=== PATIENT | male | born 1970 | race Hispanic/Latino ===

== ENCOUNTER 2019-03-17 07:07 | Emergency (ER) | payer SELFPAY ==
[2019-03-17 07:16] VITALS: BP 137/92; PULSE 73; RESP 15; TEMP 36.6; O2SAT 96
--- NOTE | 2019-03-17 07:27 | ED_ITS ---
HPI - Abdominal Pain General Chief Complaint: Abdominal Pain Stated Complaint: abdominal pain Time Seen by Provider: 03/17/19 07:27 Source: patient and family Mode of arrival: Family Vehicle Limitations: language barrier History of Present Illness HPI narrative: This is a 48-year-old male who comes in with complaint of right lower quadrant pain that's about 5:30 this morning. Patient states he has had this pain occasionally in the past but mildly but is significantly worse today. He took 2 Aleve this morning which did improve the pain somewhat. States pain sort of started the right lower quadrant but he does have some discomfort in the right flank as well. He has not had any fevers. He has had some nausea and he has vomited at least once today. He has not had any changes to bowel movements. He has not any issues with urination, no hematuria dysuria frequency. He does not have any testicular pain. Patient denies any other past medical issues. He states he has had a surgery on his gallbladder and he thinks he may have had his appendix removed but he is not sure. He does have a scar in the right lower quadrant. Patient denies any allergies to medications. Related Data Previous Rx's Medication Instructions Recorded hydrocodone-acetaminophen [[place]] 1 tab PO Q4HP PRN #7 tab 08/14/16 hydrocodone-acetaminophen [[place]] 1 tab PO Q4-6H PRN #10 tab 03/17/19 tamsulosin [Flomax] 0.4 mg PO DAILY #7 cap 03/17/19 Allergies Allergy/AdvReac Type Severity Reaction Status Date / Time No Known Allergies Allergy Uncoded 06/24/17 12:44 Review of Systems Review of Systems ROS Unobtainable: All systems reviewed & are unremarkable except as noted in HPI and below Patient History Social History Smoking Status: Never smoker Smoking Status: Never smoker Substance Use Type: does not use Exam Narrative Exam Narrative: GENERAL: Alert and oriented x three, moderately obese male in mild distress. HEENT: Head normocephalic, atraumatic, EOMI, pupils reactive, face symmetric, moist mucous membranes NECK: Supple, full range of motion CARDIOVASCULAR: Regular rate and rhythm without murmurs, rubs or gallops. RESPIRATORY: Breath sounds equal bilaterally, no wheezes rales or rhonchi. ABDOMEN: Soft, mild right lower quadrant tenderness. Normoactive bowel sounds all 4 quadrants. No guarding or rebound, rigidity, no mass, no bruit or pulsatile mass. No hernia or mass noted. : No CVA tenderness bilaterally EXTREMITIES: Normal range of motion, no clubbing or edema. Neurovascularly intact NEUROLOGICAL: Cranial nerves II through XII grossly intact. Moving all extremities SKIN: Warm, dry, no petechiae, no rashes or lesions. Initial Vital Signs Initial Vital Signs: Vital Signs Temperature 97.9 F 03/17/19 07:16 Pulse Rate 73 03/17/19 07:16 Respiratory Rate 15 03/17/19 07:16 Blood Pressure 137/92 H 03/17/19 07:16 Pulse Oximetry 96 03/17/19 07:16 Course Orders Ordered: Discontinued Medications Sodium Chloride (Normal Saline 0.9%) 1,000 mls @ 1,000 mls/hr IV BOLUS ONE Stop: 03/17/19 08:36 Last Infusion: 03/17/19 09:04 Dose: 0 mls/hr Documented by: Admin: 03/17/19 07:49 Dose: 1,000 mls/hr Documented by: RODO Ketorolac Tromethamine (Toradol) 30 mg IV NOW ONE Stop: 03/17/19 07:38 Last Admin: 03/17/19 07:49 Dose: 30 mg Documented by: RODO Ondansetron HCl (Zofran) 4 mg IV NOW ONE Stop: 03/17/19 07:38 Last Admin: 03/17/19 07:49 Dose: 4 mg Documented by: RODO Tamsulosin HCl (Flomax) 0.4 mg PO NOW ONE Stop: 03/17/19 08:56 Last Admin: 03/17/19 09:07 Dose: 0.4 mg Documented by: RODO Vital Signs Vital signs: Vital Signs - 8 hr 03/17/19 07:16 03/17/19 08:47 Temperature 97.9 F Pulse Rate 73 60 Respiratory Rate 15 15 Blood Pressure 137/92 H Blood Pressure [Right Arm] 130/77 Pulse Oximetry 96 97 MDM - Abdominal Pain Lab Data Attestation: I reviewed the patient's lab results. Result diagrams: 03/17/19 07:45 03/17/19 07:45 Labs: Lab Results 03/17/19 03/17/19 Range/Units 07:45 07:45 WBC 11.6 H (4.5-11.0) X10^3/uL RBC 4.98 (4.5-5.9) X10^6/uL Hgb 15.1 (13.5-17.5) g/dL Hct 42.7 (41-53) % MCV 85.7 (80-100) fL MCH 30.4 (26-34) PG MCHC 35.5 (30-36) % RDW 13.7 (11.6-14.8) % Plt Count 203 (150-400) X10^3/uL Neut % (Auto) 82.0 H (50-75) % Lymph % (Auto) 11.2 L (25-40) % [place] % (Auto) 5.6 (3-14) % Eos % (Auto) 0.8 L (2-4) % Baso % (Auto) 0.4 (0-2) % Neut # (Auto) 9500 H (6131-2255) /uL Lymph # (Auto) 1300 (1476-3331) /uL [place] # (Auto) 600 (0-900) /uL Eos # (Auto) 100 (0-450) /uL Baso # (Auto) 100 (0-100) /uL Sodium 140 (137-145) mmol/L Potassium 4.0 (3.4-5.1) mmol/L Chloride 104 (98-107) mmol/L Carbon Dioxide 28 (22-32) mmol/L BUN 16 (9-20) mg/dL Creatinine 0.80 (0.66-1.25) mg/dL Estimated GFR > 60.0 (>60) mL/min BUN/Creatinine Ratio 20.0 (6-22) Glucose 107 H (70-100) mg/dL Calcium 9.1 (8.4-10.2) mg/dL Total Bilirubin 0.5 (0.2-1.3) mg/dL AST 18 (17-59) IU/L ALT 16 (<50) IU/L Alkaline Phosphatase 93 (38-126) U/L Total Protein 6.9 (6.3-8.2) g/dL Albumin 4.0 (3.5-5.0) g/dL Globulin 2.9 (1.7-4.1) g/dL Albumin/Globulin Ratio 1.4 (1.0-2.8) Lipase 46 (23-300) U/L Point of care testing: Urine Dip Bedside Urine Glucose Negative Bedside Urine Bilirubin - Negative Bedside Urine Ketone - Negative Urine Specific [place] 1.005 Bedside Urine Occult Blood +++ Bedside Urine pH 7.5 Bedside Urine Protein - Negative Bedside Urine Urobilinogen - Negative Bedside Urine Nitrite - Negative Bedside Urine Leukocytes - Negative Esterase Imaging Data CT scan - abdomen/pelvis: Radiologist's Impression: [address] [address] [address] Scan Report Signed Patient: Estefanía Lala#: [id number] : 1970Acct:[id number] Age/Sex: 48 / MDate of Service: 03/17/19 Loc: ED Accession Number: [id number] Procedure: CT abdomen pelvis w con Ordering Provider: Ruth Carter D.O. PROCEDURE: CT ABDOMEN PELVIS W CON INDICATIONS: RLQ pain, ? appendectomy, flank pain TECHNIQUE: After the administration of intravenous contrast, 5 mm thick sections acquired from the diaphragm to the symphysis. 5 mm coronal and sagittal reformats were acquired. For radiation dose reduction, the following was used: automated exposure control, adjustment of mA and/or kV according to patient size. COMPARISON: None. FINDINGS: Image quality: Excellent. ABDOMEN: Lung bases: Bibasilar dependent atelectasis is seen. No pleural effusion or pneumothorax Heart size is normal. Solid organs: Liver is normal in size and enhancement. Diffuse hepatic steatosis is seen. Gallbladder is surgically absent. Biliary system is non dilated. Pancreas enhances normally. Spleen is normal in size and enhancement. No adrenal nodules. Kidneys demonstrate normal size and enhancement. Mild prominence of right renal collecting system and right ureter is seen with a 4-5 mm stone seen in mid to distal right ureter. Mild right perinephric fat stranding is also seen. No left-sided hydronephrosis or renal stone. Peritoneum and bowel: Bowel loops demonstrate normal wall thickness and caliber. No free fluid or air. There is no evidence of acute appendicitis. Sigmoid diverticulosis is seen, no CT evidence of acute diverticulitis. Nodes and vessels: No retroperitoneal or mesenteric adenopathy by size criter ia. Aorta and inferior vena cava are normal in size. Miscellaneous: No ventral hernias. PELVIS: Genitourinary: Bladder wall thickness is normal. Miscellaneous: No inguinal hernias or adenopathy. Bones: No suspicious bony lesions. Partial bony fusion at T12-L2 level is seen with chronic appearing anterior wedge compression deformity at L1 level. No gross acute compression fracture. Degenerative disc disease throughout lumbar spine. IMPRESSION: 1. 4-5 mm right distal ureteral stone with mild right-sided hydronephrosis and proximal hydroureter. No left-sided renal stone hydronephrosis. 2. Sigmoid diverticulosis with no CT evidence of acute diverticulitis. No evidence of acute appendicitis. No free fluid of air. 3. Hepatic steatosis. Prior cholecystectomy. Dictated by: Efrem Ramos M.D. on 03/17/2019 at 8:40 Approved by: Efrem Ramos M.D. on 03/17/2019 at 8:48 MDM Narrative Medical decision making narrative: Patient comes in with right abdominal pain does show a kidney stone. Patient's urinalysis does not show infection, does show hematuria. Patient's renal function is normal with no major lab abnormalities. Patient was given Flomax and pain improved with Toradol. Was given prescription for pain control and strict return precautions. Patient was also given referral for Urology although will likely pass his stone and may up with primary care if he prefers. Discharge Plan Departure Patient Disposition: Home Clinical Impression: Kidney stone on right side Discharge Date/Time: 03/17/19 09:37 Instructions: DI for Kidney Stones Activity Restrictions/Additional Instructions: Follow up with primary care in the next 3-5 days if symptoms have not resolved. You may also follow up with a urologist if you prefer. Your kidney stone will likely pass over the next several days. Take flomax once daily until gone. You may take ibuprofen up to 800 mg every 8 hours as needed for pain. May take narcotic pain medication in addition to ibuprofen if your pain is not controlled, take 1 tablet every 4-6 hours as needed for pain. Return to the ER for fevers greater 100.4 F, rapidly worsening abdominal or flank pain, persistent vomiting, lightheadedness, passing out, inability urina te, black or bloody stools or other new or concerning symptoms. Prescriptions: New tamsulosin [Flomax] 0.4 mg capsule 0.4 mg PO DAILY Qty: 7 RF: 0 hydrocodone-acetaminophen [[place]] 5-325 mg tablet 1 tab PO Q4-6H PRN (Reason: pain) Qty: 10 RF: 0 No Action hydrocodone-acetaminophen [[place]] 5 MG/325 MG tablet 1 tab PO Q4HP PRNQty: 7 RF: 0 Referrals: Monique Jaramillo MD [Non-Staff] -
[2019-03-17] MEDS: KETOROLAC 60 MG/2 ML VIAL 30 MG IV (07:49)
[2019-03-17] MEDS: ONDANSETRON 4 MG/2 ML INJ IV (07:49)
[2019-03-17] MEDS: SODIUM CHLORIDE 0.9% 1,000 ML 1000 ML IV (07:49)
[2019-03-17 08:03] LABS: Alanine Aminotransferase 16 IU/L (<50); Albumin Globulin Ratio 1.4 (1.0-2.8); Alkaline Phosphatase 93 U/L (38-126); Aspartate Aminotransferase 18 IU/L (17-59); Bilirubin Total 0.5 mg/dL (0.2-1.3); Blood Urea Nitrogen 16 mg/dL (9-20); Calcium 9.1 mg/dL (8.4-10.2); Carbon Dioxide 28 mmol/L (22-32); Chloride 104 mmol/L (98-107); Estimated Glomerular Filt Rate > 60.0 mL/min (>60); Globulin 2.9 g/dL (1.7-4.1); Glucose 107 mg/dL (70-100); HEMOLYSIS 17 (0-50); Lipase 46 U/L (23-300); Sodium 140 mmol/L (137-145); Total Protein 6.9 g/dL (6.3-8.2)
[2019-03-17 08:06] LABS: Add Manual Diff / Slide Review NO; Basophils Absolute Auto 100 /uL (0-100); Basophils Percent Auto 0.4 % (0-2); Eosinophils Absolute Auto 100 /uL (0-450); Eosinophils Percent Auto 0.8 % (2-4); Hematocrit 42.7 % (41-53); Hemoglobin 15.1 g/dL (13.5-17.5); Lymphocytes Absolute Auto 1300 /uL (1100-4500); Lymphocytes Percent Auto 11.2 % (25-40); Mean Corpuscular HGB Conc 35.5 % (30-36); Mean Corpuscular Hemoglobin 30.4 PG (26-34); Mean Corpuscular Volume 85.7 fL (80-100); Monocytes Absolute Auto 600 /uL (0-900); Monocytes Percent Auto 5.6 % (3-14); Neutrophils Absolute Auto 9500 /uL (1500-7000); Platelet Count 203 X10^3/uL (150-400); Red Blood Cell Count 4.98 X10^6/uL (4.5-5.9); Red Cell Distribution Width 13.7 % (11.6-14.8); White Blood Cell Count 11.6 X10^3/uL (4.5-11.0)
--- NOTE | 2019-03-17 08:07 | DI.CT.S_ITS ---
PROCEDURE: CT ABDOMEN PELVIS W CON INDICATIONS: RLQ pain, ? appendectomy, flank pain TECHNIQUE: After the administration of intravenous contrast, 5 mm thick sections acquired from the diaphragm to the symphysis. 5 mm coronal and sagittal reformats were acquired. For radiation dose reduction, the following was used: automated exposure control, adjustment of mA and/or kV according to patient size. COMPARISON: None. FINDINGS: Image quality: Excellent. ABDOMEN: Lung bases: Bibasilar dependent atelectasis is seen. No pleural effusion or pneumothorax Heart size is normal. Solid organs: Liver is normal in size and enhancement. Diffuse hepatic steatosis is seen. Gallbladder is surgically absent. Biliary system is non dilated. Pancreas enhances normally. Spleen is normal in size and enhancement. No adrenal nodules. Kidneys demonstrate normal size and enhancement. Mild prominence of right renal collecting system and right ureter is seen with a 4-5 mm stone seen in mid to distal right ureter. Mild right perinephric fat stranding is also seen. No left-sided hydronephrosis or renal stone. Peritoneum and bowel: Bowel loops demonstrate normal wall thickness and caliber. No free fluid or air. There is no evidence of acute appendicitis. Sigmoid diverticulosis is seen, no CT evidence of acute diverticulitis. Nodes and vessels: No retroperitoneal or mesenteric adenopathy by size criteria. Aorta and inferior vena cava are normal in size. Miscellaneous: No ventral hernias. PELVIS: Genitourinary: Bladder wall thickness is normal. Miscellaneous: No inguinal hernias or adenopathy. Bones: No suspicious bony lesions. Partial bony fusion at T12-L2 level is seen with chronic appearing anterior wedge compression deformity at L1 level. No gross acute compression fracture. Degenerative disc disease throughout lumbar spine. IMPRESSION: 1. 4-5 mm right distal ureteral stone with mild right-sided hydronephrosis and proximal hydroureter. No left-sided renal stone hydronephrosis. 2. Sigmoid diverticulosis with no CT evidence of acute diverticulitis. No evidence of acute appendicitis. No free fluid of air. 3. Hepatic steatosis. Prior cholecystectomy. Dictated by: Efrem Ramos M.D. on 03/17/2019 at 8:40 Approved by: Efrem Ramos M.D. on 03/17/2019 at 8:48
[2019-03-17 08:47] VITALS: BP 130/77; PULSE 60; RESP 15; O2SAT 97
[2019-03-17] MEDS: TAMSULOSIN 0.4 MG CAPSULE PO (09:07)
[2019-03-17 09:12] VITALS: BP 125/77; PULSE 61; RESP 14; O2SAT 97
== END 2019-03-17 09:37 | disposition home or self-care (01) ==
PROVIDERS: Emergency Provider Emergency Medicine
DX: N20.0 Calculus of kidney (principal)
CPT/HCPCS: 36415; 74177; 80053; 81003; 83690; 85025; 96361; 96374; 96375; 99284; J1885; J2405; Q9967

== ENCOUNTER 2019-03-18 23:04 | Emergency (ER) | payer SELFPAY ==
[2019-03-18 23:05] VITALS: BP 146/92; PULSE 79; RESP 16; TEMP 37.1; O2SAT 94; BMI 29.7
--- NOTE | 2019-03-18 23:19 | ED.MALEGU ---
HPI - Male Genitourinary General Chief complaint: Back Pain/Injury Stated complaint: urinary issues, medications not helping Time Seen by Provider: 03/18/19 23:05 Source: patient and family Mode of arrival: Ambulatory Limitations: language barrier History of Present Illness HPI Narrative: 48-year-old male nonsmoker without contributory medical history presents with multiple family members in the chief complaint of ongoing right flank pain. He was seen and evaluated yesterday and diagnosed with a 4-5 mm distal stone and treated accordingly. He returns because his pain is been controlled. He denies fever chills nor nausea or vomiting. He is not dizzy nor weak or lightheaded. He denies provocation or palliation of his symptoms Onset (ago): day(s) Duration: constant Location: right flank Severity: moderate Quality: aching Relieving factors: none Exacerbating factors: none Associated symptoms: Reports denies other symptoms Related Data Previous Rx's Medication Instructions Recorded hydrocodone-acetaminophen [[place]] 1 tab PO Q4HP PRN #7 tab 08/14/16 hydrocodone-acetaminophen [[place]] 1 tab PO Q4-6H PRN #10 tab 03/17/19 tamsulosin [Flomax] 0.4 mg PO DAILY #7 cap 03/17/19 ketorolac 10 mg PO Q6H PRN #14 tab 03/19/19 Allergies Allergy/AdvReac Type Severity Reaction Status Date / Time No Known Allergies Allergy Uncoded 06/24/17 12:44 Review of Systems Constitutional Constitutional: Denies chills, Denies fatigue, Denies fever(s), Denies frequent falls, Denies lethargy and Denies weakness Eyes Eyes: Denies change in vision, Denies eye discharge, Denies irritation and Denies loss of vision ENT Ears, Nose, Mouth, and Throat: Denies change in voice, Denies dizziness, Denies neck pain, Denies sore throat and Denies throat swelling Cardiovascular Cardiovascular: Denies chest pain, Denies irregular heart rhythm, Denies lightheadedness, Denies palpitations, Denies dyspnea, Denies dyspnea on exertion and Denies orthopnea Respiratory Respiratory: Denies cough, Denies dyspnea, Denies dyspnea on exertion and Denies wheezing Gastrointestinal Gastrointestinal: Denies abdominal pain, Denies change in bowel habits, Denies diarrhea, Denies nausea and Denies vomiting Genitourinary Genitourinary: Denies hematuria, Reports flank pain, Denies urinary incontinence and Denies urinary urgency Musculoskeletal Musculoskeletal: Denies back pain, Denies muscle weakness, Denies neck pain, Denies numbness and Denies tingling Integumentary/Breasts Skin/Breast: Denies pruritus, Denies erythema, Denies rash and Denies wounds Neurologic Neurologic: Denies behavioral changes, Denies confusion, Denies dizziness, Denies frequent falls, Denies loss of vision, Denies numbness, Denies tingling and Denies weakness Psychiatric Psychiatric: Denies anxiety, Denies behavioral changes, Denies confusion, Denies depression, Denies homicidal ideation and Denies suicidal ideation Endocrine Endocrine: Denies fatigue, Denies flushing and Denies palpitations Hematologic/Lymphatic Hematologic/Lymphatic: Denies easy bruising Allergic/Immunologic Allergic/Immunologic: Denies urticaria, Denies throat swelling and Denies wheezing Patient History Social History Smoking Status: Never smoker Smoking Status: Never smoker Substance Use Type: does not use Exam Narrative Exam Narrative: GENERAL: [48] year old patient appears stated age. Well-nourished, well-developed patient, in mild distress. HEAD: Atraumatic. Normocephalic. EYES: Pupils equal round and reactive. Extraocular motions intact. No scleral icterus. No injection or drainage. ENT: Nose without bleeding, purulent drainage. Throat without erythema, tonsillar hypertrophy or exudate. Airway patent. NECK: Trachea midline. Non tender CARDIOVASCULAR: Regular rate and rhythm without murmurs, gallops, or rubs. RESPIRATORY: Clear to auscultation. Breath sounds equal bilaterally. No wheezes, rales, or rhonchi. GASTROINTESTINAL: Abdomen soft, non-tender, nondistended. EXTREMITIES: No edema or joint tenderness. BACK: Nontender without deformity or crepitance. No flank tenderness. NEURO: AOx3. SKIN: No rash or erythema of visible areas Initial Vital Signs Initial Vital Signs: Vital Signs Temperature 98.7 F 03/18/19 23:05 Pulse Rate 79 03/18/19 23:05 Respiratory Rate 16 03/18/19 23:05 Blood Pressure 146/92 H 03/18/19 23:05 Pulse Oximetry 94 03/18/19 23:05 Course Orders Ordered: ED Orders 03/18/19 23:35 Basic Metabolic Panel Stat Complete Blood Count AUTO DIFF Stat Discontinued Medications Sodium Chloride (Normal Saline 0.9%) 1,000 mls @ 1,000 mls/hr IV BOLUS ONE Stop: 03/19/19 00:18 Last Admin: 03/18/19 23:42 Dose: 1,000 mls/hr Documented by: BOUCHRA Ketorolac Tromethamine (Toradol) 15 mg IV NOW ONE Stop: 03/18/19 23:20 Last Admin: 03/18/19 23:42 Dose: 15 mg Documented by: BOUCHRA Ketorolac Tromethamine (Toradol 10mg [place]) 1 bottle MISC SEEINSTR ONE Stop: 03/19/19 00:40 Last Admin: 03/19/19 00:48 Dose: 1 bottle Documented by: LINDSAY Ketorolac Tromethamine (Toradol 10mg [place]) 1 bottle MISC SEEINSTR ONE Stop: 03/19/19 00:41 Last Admin: 03/19/19 00:49 Dose: 1 bottle Documented by: LINDSAY Ondansetron HCl (Zofran Odt [place]) 1 bottle MISC SEEINSTR ONE Stop: 03/19/19 00:41 Last Admin: 03/19/19 00:49 Dose: 1 bottle Documented by: LINDSAY Vital Signs Vital signs: Vital Signs - 8 hr 03/18/19 23:05 03/19/19 00:54 Temperature 98.7 F Pulse Rate 79 77 Respiratory Rate 16 18 Blood Pressure 146/92 H Blood Pressure [Left Arm] 134/88 Pulse Oximetry 94 96 MDM - Male Genitourinary Lab Data Result diagrams: 03/18/19 23:35 03/18/19 23:35 Labs: Lab Results 03/18/19 03/18/19 Range/Units 23:35 23:35 WBC 10.7 (4.5-11.0) X10^3/uL RBC 4.75 (4.5-5.9) X10^6/uL Hgb 14.4 (13.5-17.5) g/dL Hct 40.2 L (41-53) % MCV 84.6 (80-100) fL MCH 30.3 (26-34) PG MCHC 35.8 (30-36) % RDW 13.8 (11.6-14.8) % Plt Count 197 (150-400) X10^3/uL Neut % (Auto) 74.5 (50-75) % Lymph % (Auto) 17.9 L (25-40) % [place] % (Auto) 6.3 (3-14) % Eos % (Auto) 0.6 L (2-4) % Baso % (Auto) 0.7 (0-2) % Neut # (Auto) 7900 H (7890-6484) /uL Lymph # (Auto) 1900 (2311-1015) /uL [place] # (Auto) 700 (0-900) /uL Eos # (Auto) 100 (0-450) /uL Baso # (Auto) 100 (0-100) /uL Sodium 136 L (137-145) mmol/L Potassium 3.9 (3.4-5.1) mmol/L Chloride 101 (98-107) mmol/L Carbon Dioxide 27 (22-32) mmol/L BUN 14 (9-20) mg/dL Creatinine 0.80 (0.66-1.25) mg/dL Estimated GFR > 60.0 (>60) mL/min BUN/Creatinine Ratio 17.5 (6-22) Glucose 117 H (70-100) mg/dL Calcium 9.0 (8.4-10.2) mg/dL MDM Narrative Medical decision making narrative: 48-year-old male with known right-sided stone presents with uncontrolled pain. Exam is very reassuring as are the lab findings. He had a complete resolution of symptoms after Toradol. Patient understands return precautions and has had questions answered to his apparent satisfaction. Discharge Plan Departure Patient Disposition: Home Clinical Impression: Kidney stone on right side Instructions: DI for Kidney Stones Activity Restrictions/Additional Instructions: *You have been diagnosed with [right-sided kidney stone] *What to do: *Take medications as directed *Follow up with your primary care provider in 2-3 days, call for an appointment. Let them know you were seen in the Emergency Department and that we ask that you be seen in follow up *Return to ER if you should have any new, worsening or concerning symptoms Prescriptions: New ketorolac 10 mg tablet 10 mg PO Q6H PRN (Reason: pain) Qty: 14 RF: 0 No Action hydrocodone-acetaminophen [[place]] 5 MG/325 MG tablet 1 tab PO Q4HP PRNQty: 7 RF: 0 tamsulosin [Flomax] 0.4 mg capsule 0.4 mg PO DAILY Qty: 7 RF: 0 hydrocodone-acetaminophen [[place]] 5-325 mg tablet 1 tab PO Q4-6H PRN (Reason: pain) Qty: 10 RF: 0
[2019-03-18] MEDS: SODIUM CHLORIDE 0.9% 1,000 ML 1000 ML IV (23:42)
[2019-03-18] MEDS: KETOROLAC 60 MG/2 ML VIAL 15 MG IV (23:42)
[2019-03-18 23:44] LABS: Add Manual Diff / Slide Review NO; Basophils Absolute Auto 100 /uL (0-100); Basophils Percent Auto 0.7 % (0-2); Eosinophils Absolute Auto 100 /uL (0-450); Eosinophils Percent Auto 0.6 % (2-4); Hematocrit 40.2 % (41-53); Hemoglobin 14.4 g/dL (13.5-17.5); Lymphocytes Absolute Auto 1900 /uL (1100-4500); Lymphocytes Percent Auto 17.9 % (25-40); Mean Corpuscular HGB Conc 35.8 % (30-36); Mean Corpuscular Hemoglobin 30.3 PG (26-34); Mean Corpuscular Volume 84.6 fL (80-100); Monocytes Absolute Auto 700 /uL (0-900); Monocytes Percent Auto 6.3 % (3-14); Neutrophils Absolute Auto 7900 /uL (1500-7000); Neutrophils Percent Auto 74.5 % (50-75); Platelet Count 197 X10^3/uL (150-400); Red Blood Cell Count 4.75 X10^6/uL (4.5-5.9); Red Cell Distribution Width 13.8 % (11.6-14.8); White Blood Cell Count 10.7 X10^3/uL (4.5-11.0)
[2019-03-18 23:53] LABS: BUN Creatinine Ratio 17.5 (6-22); Blood Urea Nitrogen 14 mg/dL (9-20); Carbon Dioxide 27 mmol/L (22-32); Chloride 101 mmol/L (98-107); Estimated Glomerular Filt Rate > 60.0 mL/min (>60); Glucose 117 mg/dL (70-100); HEMOLYSIS < 15 (0-50); Potassium 3.9 mmol/L (3.4-5.1); Sodium 136 mmol/L (137-145)
[2019-03-19] MEDS: KETOROLAC 10MG PREPACK 1 BOTTLE MISC ×2 (00:48→00:49)
[2019-03-19] MEDS: ONDANSETRON 4 MG ODT PREPACK 1 BOTTLE MISC (00:49)
[2019-03-19 00:54] VITALS: BP 134/88; PULSE 77; RESP 18; O2SAT 96
== END 2019-03-19 01:07 | disposition home or self-care (01) ==
PROVIDERS: Emergency Provider Emergency Medicine
DX: N20.0 Calculus of kidney (principal)
CPT/HCPCS: 36415; 80048; 85025; 96361; 96374; 99284; J1885

== ENCOUNTER 2022-07-07 23:53 | Emergency (ER) | payer SELFPAY ==
--- NOTE | 2022-07-07 23:59 | DI.RAD.S_ITS ---
PROCEDURE: XR CHEST 1V INDICATIONS: Shortness of breath TECHNIQUE: One view of the chest was acquired. COMPARISON: None. FINDINGS: Surgical changes and devices: None. Lungs and pleura: Lungs are clear. No pleural effusions or pneumothorax. Mediastinum: Mediastinal contours appear normal. Heart size is normal. Bones and chest wall: No suspicious bony lesions. Overlying soft tissues appear unremarkable. IMPRESSION: 1. No acute cardiopulmonary disease. Dictated by: Antonio Small M.D. on 07/08/2022 at 1:05 Approved by: Antonio Small M.D. on 07/08/2022 at 1:05
[2022-07-08 00:08] VITALS: BP 158/99; PULSE 87; RESP 16; TEMP 36.9; O2SAT 96; BMI 29.5
--- NOTE | 2022-07-08 00:36 | ED_ITS ---
HPI - General Adult General Chief complaint: Upper Respiratory Symptoms Stated complaint: Cough 3x days, having hard time breathing Time Seen by Provider: 07/07/22 23:58 Source: patient and family Mode of arrival: Ambulatory History of Present Illness HPI narrative: Patient is a 51-year-old male who is here for evaluation of 3 days of coughing and having a hard time breathing. No fevers. Is a nonproductive cough. No chest pain. Has not tried anything for the symptoms prior to arrival. Patient is Yoruba-speaking. His son is at bedside providing translation. No underlying lung pathology. Related Data Previous Rx's Medication Instructions Recorded hydrocodone 5 mg-acetaminophen 325 1 tab PO Q4HP PRN #7 tabs 08/14/17 mg tablet ([place]) hydrocodone 5 mg-acetaminophen 325 1 tab PO Q4-6H PRN pain #10 tabs 03/17/20 mg tablet ([place]) tamsulosin 0.4 mg capsule (Flomax) 0.4 mg PO DAILY #7 caps 03/17/19 ketorolac 10 mg tablet 10 mg PO Q6H PRN pain #14 tabs 03/19/19 benzonatate 100 mg capsule 100 mg PO BID-TID PRN cough #12 07/08/22 caps prednisone 20 mg tablet 20 mg PO DAILY 5 days #5 tabs 07/08/22 Allergies Allergy/AdvReac Type Severity Reaction Status Date / Time No Known Allergies Allergy Uncoded 06/24/17 12:44 Review of Systems Constitutional Constitutional: Reports system reviewed and no additional complaints, except as documented ENT Ears, Nose, Mouth, and Throat: Reports system reviewed and no additional complaints, except as documented Respiratory Respiratory: Reports system reviewed and no additional complaints, except as documented Integumentary/Breasts Skin/Breast: Reports system reviewed and no additional complaints, except as documented Neurologic Neurologic: Reports system reviewed and no additional complaints, except as documented Hematologic/Lymphatic On Anticoagulants: No Patient History Social History Smoking Status: Never smoker Smoking Status: Never smoker Substance Use Type: does not use Exam Initial Vital Signs Initial Vital Signs: Vital Signs Temperature 98.4 F 07/08/22 00:08 Pulse Rate 87 07/08/22 00:08 Respiratory Rate 16 07/08/22 00:08 Blood Pressure 158/99 H 07/08/22 00:08 Pulse Oximetry 96 07/08/22 00:08 Oxygen Delivery Method Room Air 07/08/22 00:08 HENNJ Head: normal to inspection and normocephalic Resp Effort & Inspection: normal respiratory effort Auscultation: rhonchi and wheezes Cardio Rate: regular rate Skin General: no rashes or lesions noted Neuro General: patient alert, patient awake and moves all extremities Extrem General: normal to inspection Course Orders Ordered: ED Orders 07/07/22 23:59 XR chest 1V Stat EKG-12 Lead Stat 07/08/22 00:05 Covid-19 + FLU A/B + RSV - PCR Stat Discontinued Medications Albuterol (Albuterol 2.5 Mg/3 Ml Neb (Adult)) 2.5 mg INH NOW ONE Stop: 07/08/22 00:37 Last Admin: 07/08/22 00:54 Dose: 2.5 mg Documented By: GABRIELLA Benzonatate (Benzonatate 100 Mg Capsule) 100 mg PO NOW ONE Stop: 07/08/22 01:54 Prednisone (Prednisone 20 Mg Tablet) 20 mg PO NOW ONE Stop: 07/08/22 01:54 Vital Signs Vital signs: Vital Signs - 8 hr 07/08/22 00:08 Temperature 98.4 F Pulse Rate 87 Respiratory Rate 16 Blood Pressure 158/99 H Pulse Oximetry 96 Oxygen Delivery Method Room Air Medical Decision Making Lab Data Lab results reviewed: Yes I reviewed the patient's lab results. Labs: Lab Results 07/08/22 Range/Units 00:05 SARS-CoV-2 (PCR) Negative (Negative) Influenza A (RT-PCR) Flu a negative (NEGATIVE) Influenza B (RT-PCR) Flu b negative (NEGATIVE) RSV (PCR) Negative (Negative) Imaging Data Chest x-ray: Radiologist's Impression: PROCEDURE:? XR CHEST 1V ? INDICATIONS:? Shortness of breath ? TECHNIQUE:? One view of the chest was acquired.? ? COMPARISON:? None. ? FINDINGS:? ? Surgical changes and devices:? None.? ? Lungs and pleura:? Lungs are clear.? No pleural effusions or pneumothorax.? ? Mediastinum:? Mediastinal contours appear normal.? Heart size is normal.? ? Bones and chest wall:? No suspicious bony lesions.? Overlying soft tissues appear unremarkable.? ? IMPRESSION:? ? 1.? No acute cardiopulmonary disease. ECG Data Attestation: I personally reviewed and interpreted this ECG as follows: Interpretation: Sinus rhythm Ventricular rate is 79 Left axis deviation No [address] T wave changes MDM Narrative Medical decision making narrative: Patient's chest x-ray shows no signs of pneumonia. He is not hypoxic. Not tachypneic. Does have some wheezing that did not seem to improve with the nebulizer treatment. He is a nonproductive cough and not febrile. Low suspicion for pneumonia. Exam most consistent with bronchitis. Most likely viral in origin. Given his wheezing I will put him on steroids for the next couple days. Will also give him Tessalon to try to help with the coughing. No indication for admission to the hospital. His COVID and flu were negative. Patient did expressed understanding and agreement with this plan. Discharge Plan Departure Patient Disposition: Home Clinical Impression: Bronchitis, Cough Instructions: Cough (Alternative Therapy), Cough, DI for Bronchiolitis Activity Restrictions/Additional Instructions: Do recommend you take the medications as directed. Contact your primary doctor for follow-up. Return to the emergency department for new or worsening symptoms. Prescriptions: New prednisone 20 mg tablet 20 mg PO DAILY 5 Days Qty: 5 0RF benzonatate 100 mg capsule 100 mg PO BID-TID PRN (Reason: cough) Qty: 12 0RF No Action hydrocodone-acetaminophen [[place]] 5 MG/325 MG tablet 1 tab PO Q4HP PRNQty: 7 0RF tamsulosin [Flomax] 0.4 mg capsule 0.4 mg PO DAILY Qty: 7 0RF hydrocodone-acetaminophen [[place]] 5-325 mg tablet 1 tab PO Q4-6H PRN (Reason: pain) Qty: 10 0RF ketorolac 10 mg tablet 10 mg PO Q6H PRN (Reason: pain) Qty: 14 0RF Stand Alone Forms: Patient Portal/API
[2022-07-08] MEDS: ALBUTEROL 2.5 MG/3 ML NEB (ADULT) INH (00:54)
[2022-07-08 00:56] LABS: Influenza A - CEPHEID Flu A NEGATIVE (NEGATIVE); Influenza B - CEPHEID Flu B NEGATIVE (NEGATIVE); Respiratory Syncytial Virus Negative (Negative)
[2022-07-08 00:57] LABS: COVID-19 CEPHEID 4-PLEX PCR Negative (Negative)
[2022-07-08] MEDS: BENZONATATE 100 MG CAPSULE PO (02:16)
[2022-07-08] MEDS: predniSONE 20 MG TABLET PO (02:17)
[2022-07-08 02:23] VITALS: BP 152/84; PULSE 78; RESP 16; TEMP 36.6; O2SAT 96
== END 2022-07-08 02:24 | disposition home or self-care (01) ==
PROVIDERS: Emergency Provider Emergency Medicine
DX: J40 Bronchitis, not specified as acute or chronic (principal); R05.9 Cough, unspecified; R07.9 Chest pain, unspecified; Z20.822 Contact with and (suspected) exposure to COVID-19
CPT/HCPCS: 0241U; 71045; 93005; 93010; 94640; 99283; 99284; J7613

== ENCOUNTER 2024-03-18 12:49 | Emergency (ER) | payer SELFPAY ==
[2024-03-18 12:51] VITALS: BP 163/93; PULSE 105; RESP 18; TEMP 36.9; O2SAT 96; BMI 29.9
--- NOTE | 2024-03-18 13:05 | DI.RAD.S_ITS ---
PROCEDURE: XR CHEST 1V INDICATIONS: eval for PNA TECHNIQUE: One view of the chest was acquired. COMPARISON: [facility], CR, XR CHEST 1V, 07/07/2022, 23:58. FINDINGS: Surgical changes and devices: None. Lungs and pleura: Lungs are clear. No pleural effusions or pneumothorax. Mediastinum: Mediastinal contours appear normal. Heart size is normal. Bones and chest wall: No suspicious bony lesions. Overlying soft tissues appear unremarkable. IMPRESSION: No acute cardiopulmonary abnormality is seen. Dictated by: Kirit Andrew M.D. on 03/18/2024 at 13:25 Approved by: Kirit Andrew M.D. on 03/18/2024 at 13:26
--- NOTE | 2024-03-18 13:18 | ED_ITS ---
HPI - General Adult General Chief complaint: Upper Respiratory Symptoms Stated complaint: Fever, chest pain Time Seen by Provider: 03/18/24 13:05 Source: patient and family Mode of arrival: Ambulatory History of Present Illness HPI narrative: Patient was a 53-year-old male. No underlying lung pathology. Here for evaluation of a cough and wheezing for the past couple days. Patient was [place]ad[place] speaking. Translation provided by family at bedside. He was also having a sore throat most likely from the cough. Subjective fevers. Chest pain because of the cough. Has not tried anything for symptoms prior to arrival. Related Data Previous Rx's Medication Instructions Recorded hydrocodone 5 mg-acetaminophen 325 1 tab PO Q4HP PRN #7 tabs 08/14/17 mg tablet ([place]) hydrocodone 5 mg-acetaminophen 325 1 tab PO Q4-6H PRN pain #10 tabs 03/17/20 mg tablet ([place]) tamsulosin 0.4 mg capsule (Flomax) 0.4 mg PO DAILY #7 caps 03/17/19 ketorolac 10 mg tablet 10 mg PO Q6H PRN pain #14 tabs 03/19/19 benzonatate 100 mg capsule 100 mg PO BID-TID PRN cough #12 07/08/22 caps Allergies Allergy/AdvReac Type Severity Reaction Status Date / Time No Known Allergies Allergy Uncoded 06/24/17 12:44 Review of Systems Review of Systems ROS Unobtainable: All systems reviewed & are unremarkable except as noted in HPI and below Patient History Social History Smoking Status: Never smoker Smoking Status: Never smoker Exam Initial Vital Signs Initial Vital Signs: Vital Signs Temperature 98.4 F 03/18/24 12:51 Pulse Rate 105 H 03/18/24 12:51 Respiratory Rate 18 03/18/24 12:51 Blood Pressure 163/93 H 03/18/24 12:51 Pulse Oximetry 96 03/18/24 12:51 Oxygen Delivery Method Room Air 03/18/24 12:51 Const General: cooperative, comfortable and No ill appearing HENMT Head: normal to inspection and normocephalic Resp Effort & Inspection: cough, not labored, no retractions and not tachypneic Auscultation: wheezes Cardio Rate: regular rate Rhythm: regular rhythm GI Inspection: non-distended Skin General: no rashes or lesions noted Neuro General: patient alert, patient awake and moves all extremities Course Orders Ordered: ED Orders 03/18/24 12:55 Covid-19 + FLU A/B + RSV - PCR Stat 03/18/24 13:05 XR chest 1V Stat 03/18/24 13:08 Strep Grp A by PCR Rapid Stat Throat Culture Stat Discontinued Medications Albuterol (Albuterol 2.5 Mg/3 Ml Neb (Adult)) 2.5 mg INH NOW ONE Stop: 03/18/24 13:19 Last Admin: 03/18/24 13:25 Dose: 2.5 mg Documented By: SUSIE Vital Signs Vital signs: Vital Signs - 8 hr 03/18/24 12:51 Temperature 98.4 F Pulse Rate 105 H Respiratory Rate 18 Blood Pressure 163/93 H Pulse Oximetry 96 Oxygen Delivery Method Room Air Medical Decision Making Lab Data Lab results reviewed: Yes I reviewed the patient's lab results. Labs: Lab Results 03/18/24 03/18/24 Range/Units 12:55 13:08 SARS-CoV-2 (PCR) Negative (Negative) Influenza A (RT-PCR) Flu a positive H (NEGATIVE) Influenza B (RT-PCR) Flu b negative (NEGATIVE) RSV (PCR) Negative (Negative) Group A Strep (PCR) Negative (Negative) Imaging Data Chest x-ray: Radiologist's Impression: PROCEDURE: XR CHEST 1V INDICATIONS: eval for PNA TECHNIQUE: One view of the chest was acquired. COMPARISON: [facility], , XR CHEST 1V, 07/07/2022, 23:58. FINDINGS: Surgical changes and devices: None. Lungs and pleura: Lungs are clear. No pleural effusions or pneumothorax. Mediastinum: Mediastinal contours appear normal. Heart size is normal. Bones and chest wall: No suspicious bony lesions. Overlying soft tissues appear unremarkable. IMPRESSION: No acute cardiopulmonary abnormality is seen. MDM Narrative Medical decision making narrative: Patient reports only minimal improvement after the nebulizer. Is chest x-ray is unremarkable. He was positive for influenza A. No indication for antibiotics. I discussed this with him in his family translated for him. He expressed understanding and agreement with plan. Discharge Plan Departure Patient Disposition: Home Clinical Impression: Influenza Instructions: DI for Influenza -- Adult Activity Restrictions/Additional Instructions: Continue to take all medications as directed. He can take Tylenol for any fevers. Be sure that he was increasing his fluid intake. Return to the emergency department for new or worsening symptoms. Prescriptions: No Action hydrocodone-acetaminophen [[place]] 5 MG/325 MG tablet 1 tab PO Q4HP PRNQty: 7 0RF tamsulosin [Flom[place]] 0.4 mg capsule 0.4 mg PO DAILY Qty: 7 0RF hydrocodone-acetaminophen [[place]] 5-325 mg tablet 1 tab PO Q4-6H PRN (Reason: pain) Qty: 10 0RF ketorolac 10 mg tablet 10 mg PO Q6H PRN (Reason: pain) Qty: 14 0RF benzonatate 100 mg capsule 100 mg PO BID-TID PRN (Reason: cough) Qty: 12 0RF Stand Alone Forms: Patient Portal/API/Survey
[2024-03-18] MEDS: ALBUTEROL 2.5 MG/3 ML NEB (ADULT) INH (13:25)
[2024-03-18 13:28] LABS: Strep Grp A by PCR Rapid Negative (Negative)
[2024-03-18 13:54] LABS: Influenza A - CEPHEID Flu A POSITIVE (NEGATIVE); Influenza B - CEPHEID Flu B NEGATIVE (NEGATIVE); Respiratory Syncytial Virus Negative (Negative)
[2024-03-18 13:55] LABS: COVID-19 CEPHEID 4-PLEX PCR Negative (Negative)
[2024-03-18 14:18] VITALS: BP 128/79; PULSE 99; O2SAT 94
== END 2024-03-18 14:17 | disposition home or self-care (01) ==
PROVIDERS: Emergency Provider Emergency Medicine
DX: J10.1 Influenza due to other identified influenza virus with other respiratory manifestations (principal)
CPT/HCPCS: 0241U; 71045; 87070; 87651; 99283; J7613